=== PATIENT | female | born 1975 | race Caucasian/White ===

== ENCOUNTER → 2017-09-17 | Outpatient (CLI) | payer BC ==
[~2017-09-17] MED LIST: ACET-1600 PO; OLOP30.5 NAS; XANAX
== END ==
LOC: STAR 14:09
PROVIDERS: ATTEND Orthopaedic Surgery
DX: Z02.9 Encounter for administrative examinations, unspecified (principal)

== ENCOUNTER 2017-09-29 07:22 | Day surgery (SDC) | payer BC ==
[2017-09-17 14:44] VITALS: BP 114/81
[~2017-09-29] VITALS: Ht 175.3 cm; Wt 112.3 kg
[~2017-09-29 07:22] MED LIST changes: +BUPIVACAINE/PF 0.5% ONE; +EPINEPHRINE 1 MG/ML, 1ML ONE; +LIDOCAINE/PF 1%, 30ML ONE
[2017-09-29] MEDS ORDERED: LACTATED RINGERS 1,000 ML IV SCH (08:03)
[2017-09-29] MEDS ORDERED: MIDAZOLAM 1 MG/ML, 2ML ONE (08:13)
[2017-09-29] MEDS ORDERED: FENTANYL PF 100 MCG/2ML ONE (08:13)
[2017-09-29] MEDS ORDERED: ALPR-475 PO (08:14)
[2017-09-29] MEDS ORDERED: CEFAZOLIN 1,000 MG ONE (08:17)
[2017-09-29] MEDS ORDERED: PROPOFOL 10 MG/ML, 20ML ONE (08:17)
[2017-09-29] MEDS ORDERED: DEXAMETHASONE 4 MG/ML, 1ML ONE (08:17)
[2017-09-29] MEDS ORDERED: ONDANSETRON 2MG/ML, 2ML ONE (08:17)
[2017-09-29] MEDS ORDERED: SUCCINYLCHOLINE 20 MG/ML, 10ML ONE (08:18)
[2017-09-29] MEDS ORDERED: LIDOCAINE 1%, 2ML SQ PRN (08:30)
[2017-09-29 08:31] LABS: HCG UR LOT HCG7030192
[2017-09-29 08:41] LABS: HCG UR OBC PASS
[2017-09-29] MEDS ORDERED: OLOPATADINE HCL 30.5 GM NAS SCH (09:00)
[2017-09-29] MEDS ORDERED: BUPIVACAINE/PF-EPI 0.5% 1:200K INFIL ONE (09:17)
[2017-09-29] MEDS ORDERED: LIDOCAINE 1%-EPI 1:100K, 30ML INFIL ONE (09:18)
[2017-09-29] MEDS ORDERED: MIDAZOLAM 1 MG/ML, 2ML IV PRN (09:30)
[2017-09-29] MEDS ORDERED: hydrALAzine 20 MG/ML, 1ML IV PRN (09:30)
[2017-09-29] MEDS ORDERED: DIAZEPAM 5 MG/ML, 2ML IVPush PRN (09:30)
[2017-09-29] MEDS ORDERED: MEPERIDINE/PF 25MG/0.5ML IVPush PRN (09:30)
[2017-09-29] MEDS ORDERED: OXYcodone 5 MG/5 ML ORAL.SOL UDC PO PRN (09:30)
[2017-09-29] MEDS ORDERED: LABETALOL 5MG/ML, 20ML IV PRN (09:30)
[2017-09-29] MEDS ORDERED: HYDROmorphone 1 MG/ML, 1ML IV PRN (09:30)
[2017-09-29] MEDS ORDERED: FENTANYL PF 100 MCG/2ML IV PRN (09:30)
[2017-09-29] MEDS ORDERED: PROMETHAZINE 25 MG/ML, 1ML IV PRN (09:30)
[2017-09-29] MEDS ORDERED: ONDANSETRON 2MG/ML, 2ML IVPush PRN (09:30)
[2017-09-29] MEDS ORDERED: KETOROLAC 30 MG/1 ML IV PRN (09:30)
[2017-09-29] MEDS ORDERED: ACETAMINOPHEN 325 MG TABLET PO PRN (09:30)
[2017-09-29] MEDS ORDERED: LORazepam 2 MG/ML, 1ML IVPush PRN (09:30)
[2017-09-29] MEDS ORDERED: ALBUTEROL/IPRATROPIUM 2.5MG/0.5MG, 3 ML NPPB PRN (09:30)
[2017-09-29] MEDS ORDERED: BUPIVACAINE/PF 0.5% ONE (09:41)
[2017-09-29] MEDS ORDERED: LIDOCAINE-MPF 2% ,5ML ONE (09:41)
[2017-09-29] MEDS ORDERED: LIDOCAINE GEL 2%, 5ML ONE (09:41)
[2017-09-29] MEDS ORDERED: OXYcodone 5 MG/5 ML ORAL.SOL UDC ONE (10:27)
[2017-09-29] MEDS ORDERED: ACETAMINOPHEN 650 MG/20.3 ML UDC ONE (10:27)
== END 2017-09-29 13:50 ==
LOC: OUT 07:22
PROVIDERS: ATTEND Orthopaedic Surgery
DX: M75.111 Incomplete rotator cuff tear or rupture of right shoulder, not specified as traumatic (principal); M75.41 Impingement syndrome of right shoulder; M19.011 Primary osteoarthritis, right shoulder; I25.10 Atherosclerotic heart disease of native coronary artery without angina pectoris; Y92.89 Other specified places as the place of occurrence of the external cause; S43.431A Superior glenoid labrum lesion of right shoulder, initial encounter; X58.XXXA Exposure to other specified factors, initial encounter; Y93.89 Activity, other specified; Y99.8 Other external cause status; Z88.1 Allergy status to other antibiotic agents
CPT/HCPCS: 29823; 29826; 29827; 81025; J0171; J0330; J0690; J1100; J2250; J2405; J2704; J3010; J3490